=== PATIENT | male | born 1970 | race American Indian/Alaskan Native ===

== ENCOUNTER 2021-02-27 17:08 | Emergency (ER) | payer SELFPAY ==
[2021-02-27] MEDS ORDERED: SODIUM CHLORIDE 0.9% 1000 ML 1,000 ML IV ONE (17:17)
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
[2021-02-27 18:05] LABS: Hematocrit 37.9 % (35.5-45.6); Hemoglobin 12.7 gm/dl (11.8-15.2)
--- NOTE | 2021-02-27 18:08 | Cat Scan Report ---
CT head/brain wo con INDICATION: Seizure. TECHNIQUE: Routine CT head. All CT scans at this location are performed using CT dose reduction for A JOSÉ LUIS by means of automated exposure control. COMPARISON: None. FINDINGS: Intracranial: [place]-white matter differentiation is maintained. No intracranial hemorrhage. No extra a xial collection. No hydrocephalus. No herniation. Sinuses: Minimal mucosal thickening in the paranasal sinuses. Mastoid air cells are essentially clear . Orbits: Globes are intact. Calvarium: No acute fracture. IMPRESSION: 1. No acute intracranial abnormality. Signer Name: Harry Gregory MD Signed: 02/27/2021 6:03 PM Workstation Name: [id number]
[2021-02-27 18:20] LABS: Alanine Aminotransferase 12 units/L (7-56); BUN/Creatinine Ratio 16; Blood Urea Nitrogen 14 mg/dL (9-20); Calcium 9.3 mg/dL (8.4-10.2); Hemolysis Index 3
[2021-02-27 19:38] LABS: Bilirubin,Urine NEG (Negative); Blood,Urine SM (Negative); Color,Urine Yellow (Yellow); Hyaline Casts,Urine 1 /LPF; Mucus,Urine FEW /HPF; Urobilinogen,Urine < 2.0 mg/dL (<2.0); WBC,Urine < 1.0 /HPF (0.0-6.0)
[2021-02-27 19:45] LABS: Amphetamine Screen,Urine Negative; Benzodiazepines Screen,Urine Negative; Methadone Screen,Urine Negative; Opiate Screen,Urine Negative
[2021-02-27 19:58] LABS: Cannabinoid Screen,Urine Positive; Cocaine Screen,Urine Positive
[2021-02-27 20:47] VITALS: BP 148/92
--- NOTE | 2021-02-28 11:17 | Electrocardiograph Report ---
[facility] Test Date: 2021-02-27 Test Time: 18:48:43 Pat Name: PRETTY RHODES Department: Room: Gender: [employer]: REN : [id number] Requested By: STEVEN DURANT Order Number: [id number] Reading MD: Abbe Hopkins Measurements Intervals [place] Rate: 80 P: 75 MT: 137 QRS: 32 QRSD: 94 T: 36 QT: 380 QTc: 439 Interpretive Statements Sinus rhythm Consider left ventricular hypertrophy ST elev, probable normal early repol pattern No previous ECG available for comparison Electronically Signed On 02-28-2021 11:16:51 EDT by Abbe Hopkins
== END 2021-02-27 20:49 | disposition home or self-care (01) ==
LOC: ED 17:08
DX: R56.9 Unspecified convulsions (principal); F12.90 Cannabis use, unspecified, uncomplicated
CPT/HCPCS: 36415; 70450; 80053; 80307; 81001; 82550; 83735; 85014; 85018; 85049; 93005; 96360; 99284; J7030; 80320; G0480